=== PATIENT | female | born 1945 | race Caucasian/White ===

== ENCOUNTER 2021-11-24 08:45 | Emergency (ER) | payer MEDICARE, OTHER ==
[2021-11-24 09:45] LABS: Mean Corpuscular HGB CONC 31.5 g/dL (32.0-36.0); Mean Corpuscular Hemoglobin 27.5 pg (27.0-31.0); Mean Corpuscular Volume 87.2 fL (78.0-98.0); Mean Platelet Volume 10.3 fL (7.4-10.4); Platelet Count 205 thou/uL (130-400); RBC Distribution Width 11.5 % (11.5-14.5); Red Blood Cell (RBC) Count 4.35 mill/uL (4.20-5.40); White Blood Cell (WBC) Count 8.9 thou/uL (4.8-10.8)
[2021-11-24] MEDS ORDERED: Sodium Chloride 0.9% 1,000 ML ONE (09:49)
[2021-11-24 09:58] LABS: ALT (SGPT) Less than 7 U/L (8-55); AST (SGOT) 11 U/L (5-34); Albumin 3.6 g/dL (3.4-4.8); Alkaline Phosphatase 70 U/L (40-110); Anion Gap 17 mmol/L (10-20); BUN (Urea Nitrogen) 36 mg/dL (9.8-20.1); Bilirubin, Total 0.3 mg/dL (0.2-1.2); Calc. Creatinine Clearance 0 mL/min (70-130); Calcium 8.9 mg/dL (7.8-10.44); Carbon Dioxide 18 mmol/L (23-31); Chloride 107 mmol/L (98-107); Estimated GFR 17; Globulin 3.8 g/dL (2.4-3.5); Glucose 121 mg/dL (83-110); Lipase 79 U/L (8-78); Potassium 4.4 mmol/L (3.5-5.1); Protein, Total 7.4 g/dL (5.8-8.1); Sodium 138 mmol/L (136-145)
[2021-11-24 10:00] LABS: Manual Diff?? YES
[2021-11-24 10:01] LABS: Anisocytosis SLIGHT = 6-15 cells (100X) (0-5/hpf); Band 9 % (5-11); Lymphocytes 14 % (21-51); MDiff Complete? YES; Monocytes 13 % (0-10); Neutrophil 64 % (42-75)
[2021-11-24 10:02] LABS: Platelet Morphology Comment Appears Adequate
[2021-11-24 11:25] LABS: Bilirubin Small (Negative); Blood, Urine Negative (Negative); Glucose, Urine (Dipstick) Negative (Negative); Ketone, Urine Negative (Negative); Leukocyte Negative (Negative); Nitrite Negative (Negative); Protein, Urine (Dipstick) 30 mg/dL (Neg-Trace); Specific Gravity, Urine 1.025 (1.005-1.030); Urobilinogen 0.2 mg/dL (Less than 2); pH, Urine 5.5 (5.0-9.0)
[2021-11-24 11:26] LABS: Clarity Hazy (Clear)
[2021-11-24 11:37] LABS: Bacteria/HPF 2+ HPF (None Seen); RBC/HPF 0-3 HPF (0-3); Squamous Epithelial 0-3 HPF (0-3); WBC/HPF 0-3 HPF (0-3)
== END 2021-11-24 11:20 | disposition home or self-care (01) ==
LOC: MADERS 08:45
DX: A08.4 Viral intestinal infection, unspecified (principal); E86.0 Dehydration; R29.700 NIHSS score 0; I12.9 Hypertensive chronic kidney disease with stage 1 through stage 4 chronic kidney disease, or unspecified chronic kidney disease; N18.30 Chronic kidney disease, stage 3 unspecified; K21.9 Gastro-esophageal reflux disease without esophagitis; E03.9 Hypothyroidism, unspecified; E78.00 Pure hypercholesterolemia, unspecified; F17.210 Nicotine dependence, cigarettes, uncomplicated; Z79.82 Long term (current) use of aspirin; Z79.899 Other long term (current) drug therapy
CPT/HCPCS: 71045; 80053; 81003; 81015; 82274; 83605; 83690; 84443; 84484; 85025; 87324; 87449; 93005; 94760; 96360; J7050

== ENCOUNTER 2022-03-10 08:54 | Emergency (ER) | payer OTHER ==
[~2022-03-10 08:54] MED LIST: Iopamidol 370 76% 125 ML VIAL FS ONE; Sodium Chloride 0.9% 100 ML BAG ONE
[2022-03-10] MEDS ORDERED: diphenhydrAMINE 50 MG/ML VIAL ONE (09:22)
[2022-03-10] MEDS ORDERED: Famotidine/PF 20 mg/2ml Vial ONE (09:22)
[2022-03-10] MEDS ORDERED: methylPREDNISolone Acetate 40 mg/ml Vial ONE ×2 (09:22→09:23)
[2022-03-10] MEDS ORDERED: methylPREDNISolone Sod Succ/PF 125 MG/2 ML VIAL ONE (09:24)
[2022-03-10 09:28] LABS: #Basophils 0.1 thou/uL (0.0-0.2); #Eosinphils 0.3 thou/uL (0.0-0.7); #Lymphocytes 1.6 thou/uL (1.20-3.40); #Monocytes 0.7 thou/uL (0.11-0.59); #Neutrophils 5.5 thou/uL (1.40-6.50); %Basophils 1.6 % (0.0-1.0); %Eosinophils 3.1 % (0.0-10.0); %Lymphocytes 19.7 % (21.0-51.0); %Neutrophils 67.5 % (42.0-75.0); Hemoglobin 11.7 g/dL (12.0-16.0); Mean Corpuscular HGB CONC 32.7 g/dL (32.0-36.0); Mean Corpuscular Hemoglobin 28.5 pg (27.0-31.0); Mean Corpuscular Volume 87.1 fl (78.0-98.0); Mean Platelet Volume 8.7 fL (7.4-10.4); Platelet Count 273 10x3/uL (130-400); RBC Distribution Width 12.7 % (11.5-14.5); White Blood Cell (WBC) Count 8.2 10x3/uL (4.8-10.8)
[2022-03-10 09:30] LABS: Prothrombin Time 13.6 sec (12.0-14.7)
[2022-03-10 09:31] LABS: PTT 41.3 sec (22.9-36.1)
[2022-03-10 09:40] LABS: ALT (SGPT) Less than 7 U/L (8-55); AST (SGOT) 8 U/L (5-34); Albumin 3.4 g/dL (3.4-4.8); Alkaline Phosphatase 84 U/L (40-110); Anion Gap 15 mmol/L (10-20); BUN (Urea Nitrogen) 18 mg/dL (9.8-20.1); Bilirubin, Total 0.5 mg/dL (0.2-1.2); Calc. Creatinine Clearance 0 mL/min (70-130); Calcium 8.7 mg/dL (7.8-10.44); Carbon Dioxide 23 mmol/L (23-31); Chloride 106 mmol/L (98-107); Estimated GFR 34; Globulin 3.9 g/dL (2.4-3.5); Glucose 114 mg/dL (83-110); Potassium 4.3 mmol/L (3.5-5.1); Protein, Total 7.3 g/dL (5.8-8.1); Sodium 140 mmol/L (136-145)
[2022-03-10 09:42] LABS: CKMB 0.5 ng/mL (0-6.6); Troponin I Less than 0.010 ng/mL (< 0.028)
[2022-03-10] MEDS ORDERED: Acetaminophen 650 MG Suppository ONE (10:00)
[2022-03-10] MEDS ORDERED: Sodium Chloride 0.9% 1,000 ML ONE (10:30)
[2022-03-10 10:52] LABS: SARS-CoV-2 NAA Rapid Test DETECTED (NotDetected)
[2022-03-10] MEDS ORDERED: niCARdipine 20MG in NaCl 200 ML BAG ONE (11:57)
[2022-03-10] MEDS ORDERED: Tenecteplase 50 MG ONE (11:57)
[2022-03-10] MEDS ORDERED: niCARdipine 25 MG/10 ML VIAL ONE (12:56)
== END 2022-03-10 11:12 | disposition short-term general hospital (02) ==
LOC: MADERS 08:54
DX: U07.1 COVID-19 (principal); I63.9 Cerebral infarction, unspecified; I12.9 Hypertensive chronic kidney disease with stage 1 through stage 4 chronic kidney disease, or unspecified chronic kidney disease; N18.30 Chronic kidney disease, stage 3 unspecified; R47.01 Aphasia; F17.210 Nicotine dependence, cigarettes, uncomplicated; E03.9 Hypothyroidism, unspecified; E78.00 Pure hypercholesterolemia, unspecified; Z79.82 Long term (current) use of aspirin; Z79.899 Other long term (current) drug therapy
CPT/HCPCS: 36416; 70450; 70496; 70498; 71045; 80053; 82553; 83880; 84484; 85025; 85610; 85730; 93005; 94760; 96365; 96366; 96375; J1030; J1200; J2930; J3101; J7050; Q9967; S0028; U0002

== ENCOUNTER 2022-04-12 07:47 | Emergency (ER) | payer MEDICARE, OTHER ==
[2022-04-12 08:48] LABS: #Basophils 0.1 thou/uL (0.0-0.2); #Eosinphils 0.1 thou/uL (0.0-0.7); #Lymphocytes 1.3 thou/uL (1.20-3.40); #Monocytes 0.8 thou/uL (0.11-0.59); #Neutrophils 8.1 thou/uL (1.40-6.50); %Basophils 0.9 % (0.0-1.0); %Eosinophils 1.1 % (0.0-10.0); %Lymphocytes 12.2 % (21.0-51.0); %Neutrophils 77.7 % (42.0-75.0); Hemoglobin 10.6 g/dL (12.0-16.0); Mean Corpuscular HGB CONC 32.1 g/dL (32.0-36.0); Mean Corpuscular Hemoglobin 27.9 pg (27.0-31.0); Mean Corpuscular Volume 87.1 fl (78.0-98.0); Mean Platelet Volume 7.7 fL (7.4-10.4); Platelet Count 268 10x3/uL (130-400); RBC Distribution Width 14.5 % (11.5-14.5); White Blood Cell (WBC) Count 10.4 10x3/uL (4.8-10.8)
[2022-04-12 09:07] LABS: ALT (SGPT) 9 U/L (8-55); AST (SGOT) 13 U/L (5-34); Albumin 2.4 g/dL (3.4-4.8); Alkaline Phosphatase 75 U/L (40-110); Anion Gap 16 mmol/L (10-20); BUN (Urea Nitrogen) 22 mg/dL (9.8-20.1); Calc. Creatinine Clearance 0 mL/min (70-130); Calcium 7.6 mg/dL (7.8-10.44); Carbon Dioxide 24 mmol/L (23-31); Chloride 105 mmol/L (98-107); Estimated GFR 28; Globulin 3.4 g/dL (2.4-3.5); Glucose 109 mg/dL (83-110); Lipase 14 U/L (8-78); Magnesium 2.1 mg/dL (1.6-2.6); Potassium 3.7 mmol/L (3.5-5.1); Protein, Total 5.8 g/dL (5.8-8.1); Sodium 141 mmol/L (136-145)
[2022-04-12] MEDS ORDERED: Ketorolac Tromethamine 30 MG/ML VIAL ONE (09:15)
[2022-04-12] MEDS ORDERED: Furosemide 40 MG/4 ML VIAL ONE (09:52)
[2022-04-12 10:06] LABS: Bilirubin Negative (Negative); Blood, Urine Negative (Negative); Clarity Clear (Clear); Glucose, Urine (Dipstick) Negative (Negative); Ketone, Urine Negative (Negative); Leukocyte Trace (Negative); Nitrite Negative (Negative); Protein, Urine (Dipstick) > or equal to 300 mg/dL (Neg-Trace); Specific Gravity, Urine 1.025 (1.005-1.030)
[2022-04-12 10:19] LABS: Bacteria/HPF 1+ HPF (None Seen); RBC/HPF 0-3 HPF (0-3); WBC/HPF 0-3 HPF (0-3); Yeast-Budding 1+ HPF (None Seen)
[2022-04-12] MEDS ORDERED: Morphine 4 MG/ML VIAL ONE (10:48)
[2022-04-12] MEDS ORDERED: hydrALAZINE 20 MG/ML VIAL ONE ×2 (11:06→13:57)
[2022-04-12 14:45] LABS: Troponin I Less than 0.010 ng/mL (< 0.028)
== END 2022-04-12 16:00 | disposition short-term general hospital (02) ==
LOC: MADERS 07:47
DX: I13.0 Hypertensive heart and chronic kidney disease with heart failure and stage 1 through stage 4 chronic kidney disease, or unspecified chronic kidney disease (principal); N18.30 Chronic kidney disease, stage 3 unspecified; I71.40 Abdominal aortic aneurysm, without rupture, unspecified; K57.30 Diverticulosis of large intestine without perforation or abscess without bleeding; Z86.73 Personal history of transient ischemic attack (TIA), and cerebral infarction without residual deficits; E78.00 Pure hypercholesterolemia, unspecified; K21.9 Gastro-esophageal reflux disease without esophagitis; F17.210 Nicotine dependence, cigarettes, uncomplicated; Z79.899 Other long term (current) drug therapy; Z79.82 Long term (current) use of aspirin
CPT/HCPCS: 70450; 71045; 74176; 80053; 81003; 81015; 83690; 83735; 83880; 84484; 85025; 93005; 96374; 96375; 96376; J0360; J1885; J1940; J2270

== ENCOUNTER 2022-07-20 06:24 | Emergency (ER) | payer MEDICARE ==
[2022-07-20] MEDS ORDERED: Furosemide 20 MG/2 ML VIAL ONE ×2 (06:51→08:52)
[2022-07-20 07:04] LABS: #Basophils 0.2 thou/uL (0.0-0.2); #Eosinphils 0.5 thou/uL (0.0-0.7); #Lymphocytes 1.4 thou/uL (1.20-3.40); #Monocytes 0.6 thou/uL (0.11-0.59); #Neutrophils 5.1 thou/uL (1.40-6.50); %Basophils 2.8 % (0.0-1.0); %Eosinophils 6.3 % (0.0-10.0); %Lymphocytes 17.9 % (21.0-51.0); Hemoglobin 10.8 g/dL (12.0-16.0); Mean Corpuscular HGB CONC 32.7 g/dL (32.0-36.0); Mean Corpuscular Hemoglobin 30.4 pg (27.0-31.0); Mean Corpuscular Volume 92.9 fl (78.0-98.0); Mean Platelet Volume 9.3 fL (7.4-10.4); Platelet Count 257 10x3/uL (130-400); RBC Distribution Width 13.4 % (11.5-14.5); Red Blood Cell (RBC) Count 3.57 mill/uL (4.20-5.40); White Blood Cell (WBC) Count 7.9 10x3/uL (4.8-10.8)
[2022-07-20 07:24] LABS: ALT (SGPT) Less than 7 U/L (8-55); AST (SGOT) 12 U/L (5-34); Albumin 3.1 g/dL (3.4-4.8); Alkaline Phosphatase 64 U/L (40-110); Anion Gap 16 mmol/L (10-20); BUN (Urea Nitrogen) 39 mg/dL (9.8-20.1); Bilirubin, Total 0.3 mg/dL (0.2-1.2); Calc. Creatinine Clearance 0 mL/min (70-130); Calcium 8.8 mg/dL (7.8-10.44); Carbon Dioxide 20 mmol/L (23-31); Chloride 109 mmol/L (98-107); Estimated GFR 18; Globulin 3.1 g/dL (2.4-3.5); Glucose 100 mg/dL (83-110); Potassium 4.3 mmol/L (3.5-5.1); Protein, Total 6.2 g/dL (5.8-8.1); Sodium 141 mmol/L (136-145)
[2022-07-20] MEDS ORDERED: Sodium Chloride 0.9% 100 ML BAG ONE (07:44)
[2022-07-20] MEDS ORDERED: Ipratropium/Albuterol 3 ML NEB ONE (08:11)
[2022-07-20] MEDS ORDERED: Nitroglycerin 50 MG/250 ML BOT 250 ML ONE (08:46)
[2022-07-20 10:03] LABS: Base Excess-Venous -5.3 mmol/L (-2.0 to 3.0); CO2 Tension (PvCO2) 55.4 mmHg (42.0-51.0); vO2 Saturation-calc 99.5 % (60.0-85.0)
[2022-07-20 10:04] LABS: Calcium, Ionized 1.15 mmol/L (1.15-1.33); Chloride 114 mmol/L (98-107); Hemoglobin - Calc 13.5 g/dL (12.0-16.0); Potassium 4.9 mmol/L (3.5-5.1); Sodium 141 mmol/L (138-145); T. Carbon Dioxide 24.7 mmol/L (22.0-28.0)
[2022-07-20 10:08] LABS: Base Excess-Venous -8.3 mmol/L (-2.0 to 3.0); CO2 Tension (PvCO2) 70.7 mmHg (42.0-51.0); Hemoglobin - Calc 14.2 g/dL (12.0-16.0); Sodium 141 mmol/L (138-145); vO2 Saturation-calc 98.8 % (60.0-85.0)
[2022-07-20 10:09] LABS: Calcium, Ionized 1.19 mmol/L (1.15-1.33); Chloride 114 mmol/L (98-107); Potassium 4.9 mmol/L (3.5-5.1); T. Carbon Dioxide 24.7 mmol/L (22.0-28.0)
[2022-07-20 10:12] LABS: Bicarbonate (HCO3v) 22.6 mmol/L (22.0-28.0)
[2022-07-20] MEDS ORDERED: cefTRIAXone (ROCEPHIN) 1 GM VIAL ONE (11:15)
[2022-07-20] MEDS ORDERED: Dexamethasone 10 MG/ML VIAL ONE (11:15)
== END 2022-07-20 13:06 | disposition short-term general hospital (02) ==
LOC: MADERS 06:24
DX: J44.1 Chronic obstructive pulmonary disease with (acute) exacerbation (principal); R09.02 Hypoxemia; I13.0 Hypertensive heart and chronic kidney disease with heart failure and stage 1 through stage 4 chronic kidney disease, or unspecified chronic kidney disease; N18.30 Chronic kidney disease, stage 3 unspecified; I50.9 Heart failure, unspecified; E78.00 Pure hypercholesterolemia, unspecified; F17.210 Nicotine dependence, cigarettes, uncomplicated; Z79.82 Long term (current) use of aspirin
CPT/HCPCS: 71045; 80053; 82330; 82803; 83880; 84484; 85025; 93005; 96365; 96366; 96375; 96376; J0696; J1100; J1940; J3490; J7620